=== PATIENT | male | born 1960 | race Caucasian/White ===

== ENCOUNTER → 2017-01-28 | Outpatient (CLI) | payer OTHER ==
--- NOTE | 2017-01-28 16:01 | EKG ---
[facility] [place] Rate: 71 P: 59 AK: 164 QRS: 15 QRSD: 107 T: 22 QT: 373 QTc: 396 Interpretive Statements SINUS RHYTHM INCOMPLETE RIGHT BUNDLE BRANCH BLOCK No previous ECG available for comparison Electronically Signed On 01-28-17 17:04:28 [facility] by Tavares Gregory [email or web address]
== END ==
LOC: EKG 13:47
DX: R07.89 Other chest pain (principal); I45.19 Other right bundle-branch block
CPT/HCPCS: 93005; 93010

== ENCOUNTER → 2017-01-29 | Outpatient (CLI) | payer OTHER ==
[2017-01-29 11:53] LABS: BILIRUBIN,URINE NEGATIVE (NEG); CLARITY,URINE CLEAR (CLEAR); GLUCOSE, URINE (UA) NEGATIVE (NEG); LEUKOCYTE ESTERASE ,URINE NEGATIVE (NEG); NITRATE,URINE NEGATIVE (NEG); OCCULT BLOOD,URINE NEGATIVE (NEG); PROTEIN,URINE NEGATIVE (NEG); UROBILINOGEN,URINE 0.2 mg/dL (0.2)
[2017-01-29 12:21] LABS: URINE SAMPLE TYPE CLEAN CATCH URINE
[2017-01-29 12:22] LABS: RBC,URINE 0-1 /hpf; WBC,URINE 0
== END ==
LOC: MOB LAB 10:32
PROVIDERS: ATTEND Internal Medicine
DX: I10 Essential (primary) hypertension (principal); E78.5 Hyperlipidemia, unspecified; R07.89 Other chest pain
CPT/HCPCS: 81001

== ENCOUNTER → 2017-01-31 | Outpatient (CLI) | payer OTHER ==
[2017-01-31 14:55] LABS: ASPARTATE AMINO TRANSFERASE 24 IU/L (21-57); BILIRUBIN,TOTAL 1.3 mg/dL (0.3-1.2); BLOOD UREA NITROGEN 17 mg/dL (7-22); C-REACTIVE PROTEIN 0.7 mg/dL (0.0-0.9); CALCIUM 9.6 mg/dL (8.7-10.7); CHLORIDE 102 meq/L (98-112); EST GLOMERULAR FILTRATION > 60 (>60 ml/min/1.73m(2)); GLUCOSE 109 mg/dL (78-110); HDL CHOLESTEROL 37 mg/dL (40-150); POTASSIUM 4.3 meq/L (3.8-5.2); SODIUM 137 meq/L (135-145); TOTAL PROTEIN 7.3 g/dL (6.1-8.0); TRIGLYCERIDES 218 mg/dL (44-200)
== END ==
LOC: LAB 08:10
PROVIDERS: ATTEND Internal Medicine
DX: R07.89 Other chest pain (principal); E78.5 Hyperlipidemia, unspecified; I10 Essential (primary) hypertension
CPT/HCPCS: 80053; 80061; 86140

== ENCOUNTER → 2017-03-10 | Outpatient (CLI) | payer OTHER ==
[2017-03-10 14:42] LABS: BLOOD UREA NITROGEN 15 mg/dL (7-22); BUN/CREATININE RATIO 13.63 (6-20); EST GLOMERULAR FILTRATION > 60 (>60 ml/min/1.73m(2)); HEMATOCRIT 34.3 % (42.0-52.0); MEAN CORPUSCULAR HEMOGLOBIN 31.8 PG (27-31); MEAN CORPUSCULAR HGB CONC 32.1 g/dL (33-37); MEAN CORPUSCULAR VOLUME 99.1 FL (80-90); RED BLOOD COUNT 3.46 10^6/uL (4.70-6.10)
[2017-03-10 14:43] LABS: BASOPHILS % (AUTO) 0.6 % (0-1); EOSINOPHILS % (AUTO) 1.5 % (0-8); LYMPHOCYTES # (AUTO) 1.82 10*3/uL; MEAN PLATELET VOLUME 8.7 FL (7.4-12.2); MONOCYTES % (AUTO) 9.6 % (5-15); NEUTROPHILS # (AUTO) 5.91 10*3/UL; NEUTROPHILS % (AUTO) 67.3 % (50-80)
[2017-03-10 14:44] LABS: BASOPHILS # (AUTO) 0.05 10*3/UL; EOSINOPHILS # (AUTO) 0.13 10*3/UL; MONOCYTES # (AUTO) 0.84 10*3/UL (0.3-0.8); PLATELET MORPHOLOGY COMMENT NORMAL MORPHOLOGY (NORM); RBC MORPHOLOGY COMMENT NORMAL MORPHOLOGY (NORM); WBC MORPHOLOGY COMMENT NORMAL MORPHOLOGY (NORM)
== END ==
LOC: LAB 10:56
PROVIDERS: ATTEND Physician Assistant Medical
DX: Z48.812 Encounter for surgical aftercare following surgery on the circulatory system (principal); I25.10 Atherosclerotic heart disease of native coronary artery without angina pectoris; Z95.1 Presence of aortocoronary bypass graft; Z98.890 Other specified postprocedural states
CPT/HCPCS: 80048; 85025

== ENCOUNTER → 2017-04-28 | Outpatient (CLI) | payer OTHER ==
[2017-04-28 14:55] LABS: CHOL/HDL RATIO 4.06 RATIO (0-4.0); LDL CHOLESTEROL,CALCULATED 71.4 mg/dL
== END ==
LOC: LAB 08:00
PROVIDERS: ATTEND Physician Assistant Medical
DX: I25.10 Atherosclerotic heart disease of native coronary artery without angina pectoris (principal); Z95.1 Presence of aortocoronary bypass graft
CPT/HCPCS: 80061; 80076